=== PATIENT | female | born 1990 | race Caucasian/White ===

== ENCOUNTER 2016-06-23 22:47 | Emergency (ER) | payer BC, OTHER ==
[2016-06-23 22:30] LABS: BASOPHIL% 0.4 % (0-2.5); EOSINOPHIL# 0.1 X10e3 (0-0.7); HEMATOCRIT 33.9 % (35.0-45.0); HEMOGLOBIN 11.5 gm/dL (12.0-16.0); LYMPHOCYTE# 2.4 X10e3 (1.0-3.5); LYMPHOCYTE% 36.7 % (17.0-45.0); MEAN CELL VOLUME 87.3 FL (83-96); MEAN CORPUSCULAR HEMOGLOBIN 29.7 PG (28-34); MEAN PLATELET VOLUME 8.8 FL (6.5-11.5); MONOCYTE# 0.7 X10e3 (0-1.0); MONOCYTE% 10.6 % (3.0-12.0); NEUTROPHIL# 3.3 X10e3 (1.5-7.1); NEUTROPHIL% 50.3 % (40-75); PLATELET COUNT 244 X10e3 (140-420); RED BLOOD COUNT 3.88 X10e (3.90-5.30); RED CELL DISTRIBUTION WIDTH 13.3 % (11.0-15.5); WHITE BLOOD COUNT 6.6 X10e3 (4.0-10.5)
[2016-06-23 22:32] LABS: DIFF IND NO
[2016-06-23 22:44] LABS: CALCIUM SERUM 8.7 mg/dL (8.4-10.2); CREATININE SERUM 0.5 mg/dL (0.6-1.4); GLOM FILT RATE Estimated 133.6 mL/min (>60); POTASSIUM 3.4 mmol/L (3.5-5.1)
[~2016-06-23 22:47] MED LIST: ACETAMINOPHEN PO; ATIVAN0.5 M1 PO; AURALGAN EAR DR14 ML; BENADRYL25 MG PO; BENZONATATE PO; EFFEXOR37.5 MG PO; FLAGYL; K-DUR20 ME1 PO; KEFLEX PO; KEFLEX125 MG/5 M PO; MICRO-K10 MEQ PO; MOTRIN20 MG/ML PO; MUCINEX DM TABL1 BOX PO; NO MEDICATIONS; ORUDIS75 M1 PO; PHENERGAN25 M1 PO; PRENATAL1 TA1 PO; VICODIN 5/500 T1 TAB PO; ZITHROMAX PO; ZOFRAN ODT4 MG PO
[2016-06-23 23:51] LABS: URINE SOURCE CLEAN CATCH
[2016-06-23 23:52] LABS: URINE APPEARANCE CLEAR; URINE BILIRUBIN NEG (NEG); URINE BLOOD NEG (NEG); URINE COLOR YELLOW; URINE GLUCOSE NEG (NORM); URINE KETONE NEG (NEG); URINE LEUKOCYTE ESTERASE NEG (NEG); URINE NITRATE NEG (NEG); URINE PROTEIN NEG (NEG)
[2016-06-23 23:53] LABS: MICRO INDICATED? NO
[2016-06-25 20:30] LABS: CHLAMYDIA TRACH Not Detected (Not Detected); N GONOR Not Detected (Not Detected)
== END 2016-06-24 00:54 | disposition home or self-care (01) ==
LOC: SED 22:47
PROVIDERS: Physician Assistant Medical
DX: O99.89 Other specified diseases and conditions complicating pregnancy, childbirth and the puerperium (principal); R10.9 Unspecified abdominal pain; O99.331 Smoking (tobacco) complicating pregnancy, first trimester; F17.210 Nicotine dependence, cigarettes, uncomplicated; F31.9 Bipolar disorder, unspecified; C50.919 Malignant neoplasm of unspecified site of unspecified female breast; F41.9 Anxiety disorder, unspecified; Z3A.01 Less than 8 weeks gestation of pregnancy
CPT/HCPCS: 36415; 80048; 81003; 84702; 85025; 87210; 87491; 87591; 87808; 87905; 99284

== ENCOUNTER 2016-09-25 17:41 | Emergency (ER) | payer BC, OTHER ==
[~2016-09-25] VITALS: Ht 172.7 cm; Wt 61.2 kg
--- NOTE | ~2016-09-25 | CR21 ---
[facility]. [facility] A Service of [facility] & [facility] RADIOLOGY TEXT RESULTS PATIENT: VY SORENSEN LOCATION: SED : [birth year] UNIT #: [id number] AGE: [address]: Amy Veronica SEX: F ORDER DR: [id number] [address] [address] [id number] E MR#: [id number] Acc #: [id number] NAME: VY SORENSEN : 1990 SEX: F STUDY DATE/TIME: 09/25/2016 18:36 UNIT: SED ROOM: STUDY DESCRIPTION: CR Ankle Min 3 Views Rt Attending Physician: Amy Veronica Pa-C Ordering Physician: Amy Veronica Pa-C Primary Care Physician: No Primary Care Physician MEDICAL IMAGING REPORT This report is preliminary unless electronic signature is present. EXAM Right ankle 3 views HISTORY Fell over box today, foot and ankle pain. FINDINGS AP, lateral, and oblique projections of the ankle show satisfactory integrity of the joint mortise with a smooth articular surface. There is no identifiable fracture, dislocation, or radiopaque foreign body. IMPRESSION Normal ankle. Dictated by... Julio César Sanchez M.D. THIS IS AN ELECTRONICALLY VERIFIED REPORT Julio César Sanchez M.D. at 09/26/2016 1:03 PM IRVIN/margie TD: 09/26/2016 02:29 JOB #: [id number] MEDICAL IMAGING REPORT Page 1 of 1
--- NOTE | ~2016-09-25 | CR127 ---
[facility]. [facility] A Service of [facility] & [facility] RADIOLOGY TEXT RESULTS PATIENT: VY SORENSEN LOCATION: SED : [birth year] UNIT #: [id number] AGE: [address]: Amy Veronica SEX: F ORDER DR: [id number] [address] [address] [id number] E MR#: [id number] Acc #: [id number] NAME: VY SORENSEN : 1990 SEX: F STUDY DATE/TIME: 09/25/2016 18:36 UNIT: SED ROOM: STUDY DESCRIPTION: CR Foot Complete Min 3 View Rt Attending Physician: Amy Veronica Pa-C Ordering Physician: Amy Veronica Pa-C Primary Care Physician: No Primary Care Physician MEDICAL IMAGING REPORT This report is preliminary unless electronic signature is present. EXAM Right foot, 3 views HISTORY Fell over box today. Foot pain. FINDINGS The tarsal, metatarsal, and phalangeal elements are all anatomically normal in position and alignment. There are no articular defects. No fractures or radiopaque foreign bodies in the soft tissues are apparent. IMPRESSION Normal foot. Dictated by... Julio César Sanchez M.D. THIS IS AN ELECTRONICALLY VERIFIED REPORT Julio César Sanchez M.D. at 09/26/2016 1:03 PM IRVIN/margie TD: 09/26/2016 03:13 JOB #: [id number] MEDICAL IMAGING REPORT Page 1 of 1
== END 2016-09-25 19:20 | disposition home or self-care (01) ==
LOC: SED 17:41
DX: S93.401A Sprain of unspecified ligament of right ankle, initial encounter (principal); W01.0XXA Fall on same level from slipping, tripping and stumbling without subsequent striking against object, initial encounter; Y92.009 Unspecified place in unspecified non-institutional (private) residence as the place of occurrence of the external cause
CPT/HCPCS: 73610; 73630; 99283